=== PATIENT | male | born 1955 | race Asian ===

== ENCOUNTER 2017-06-18 12:24 | Inpatient (IN) | payer OTHER ==
[~2017-06-18] VITALS: Ht 157.5 cm; Wt 70.6 kg
[2017-06-18] MEDS ORDERED: ASPI-650 PO (13:12)
[2017-06-18] MEDS ORDERED: CLOP75TA52 PO (13:12)
[2017-06-18] MEDS ORDERED: METO25TA35 PO ×2 (13:12→13:15)
[2017-06-18] MEDS ORDERED: LOSA25TA5 PO (13:13)
[2017-06-18] MEDS ORDERED: NITR0.4T SL (13:15)
[2017-06-18] MEDS ORDERED: LOSA50TA6 PO (13:15)
[2017-06-18] MEDS ORDERED: SIMV20TA3 PO (13:15)
[2017-06-18] MEDS ORDERED: SODIUM CHLORIDE FLUSH 10ML SYR IVF ONE (13:30)
[2017-06-18] MEDS ORDERED: MAALOX/HYOSCYAMINE/LIDOCAINE 45 ML BTL PO ONE (13:30)
[2017-06-18] MEDS ORDERED: NITROGLYCERIN SINGLE TAB 0.4 MG SL PRN (13:30)
[2017-06-18 13:39] LABS: BASOPHILS # (AUTO) 0.08 x10^3/uL (0-0.1); BASOPHILS % (AUTO) 1 % (0-1); EOSINOPHILS # (AUTO) 0.25 x10^3/uL (0-0.4); EOSINOPHILS % (AUTO) 3 % (1-7); LYMPHOCYTES # (AUTO) 1.45 x10^3/uL (1-3.4); LYMPHOCYTES % (AUTO) 16 % (22-44); MD NO; MEAN CORPUSCULAR HEMOGLOBIN 29.7 pg (27.5-34.5); MEAN CORPUSCULAR HGB CONC 34.5 g/dL (33.2-36.2); MEAN PLATELET VOLUME 9.1 fL (7.4-10.4); MONOCYTES # (AUTO) 0.82 x10^3/uL (0.2-0.8); MONOCYTES % (AUTO) 9 % (2-9); NEUTROPHILS # (AUTO) 6.56 x10^3/uL (1.8-6.8); NEUTROPHILS % (AUTO) 72 % (42-75); PLATELET COUNT 232 x10^3/uL (130-400); RED BLOOD COUNT 5.02 x10^6/uL (4.38-5.82); RED CELL DISTRIBUTION WIDTH 13.7 % (9.4-14.8)
[2017-06-18] MEDS ORDERED: MAALOX/HYOSCYAMINE/LIDOCAINE 45 ML BTL ONE (13:39)
[2017-06-18] MEDS ORDERED: NITROGLYCERIN SINGLE TAB 0.4 MG SL ONE (13:39)
[2017-06-18 13:42] LABS: PROTHROMBIN TIME 10.3 Seconds (9.6-11.5)
[2017-06-18 13:48] LABS: ALANINE AMINOTRANSFERASE 38 U/L (12-78); ALBUMIN 3.8 g/dL (3.4-5.0); ANION GAP 9 mmol/L (5-15); CALCIUM 8.5 mg/dL (8.5-10.1); CHLORIDE 104 mmol/L (98-107); CREATININE 0.96 mg/dL (0.7-1.3)
[2017-06-18 13:53] LABS: ALKALINE PHOSPHATASE 117 U/L (45-117); BILIRUBIN,TOTAL 0.4 mg/dL (0.2-1.0); TOTAL PROTEIN 7.6 g/dL (6.4-8.2); TROPONIN I < 0.015 ng/mL (0.000-0.045)
[2017-06-18] MEDS ORDERED: DOCUSATE 100 MG CAPSULE PO PRN (15:30)
[2017-06-18] MEDS ORDERED: NITROGLYCERIN 0.4 MG BOTTLE (25 TABS) SL PRN (15:30)
[2017-06-18] MEDS ORDERED: ACETAMINOPHEN 325 MG TABLET PO PRN (15:30)
[2017-06-18] MEDS ORDERED: DEXTROSE 4 GM TAB.CHEW PO PRN (15:30)
[2017-06-18] MEDS ORDERED: ONDANSETRON ODT 4 MG PO PRN (15:30)
[2017-06-18] MEDS ORDERED: ENALAPRILAT 1.25 MG/ML, 2ML IVPush PRN (15:30)
[2017-06-18] MEDS ORDERED: DEXTROSE 50%, 50ML SYRINGE IVPush PRN (15:30)
[2017-06-18] MEDS ORDERED: POLYETHYLENE GLYCOL 17 GM PACKET PO PRN (15:30)
[2017-06-18] MEDS ORDERED: BISACODYL 10 MG SUPP PR PRN (15:30)
[2017-06-18] MEDS ORDERED: GLUCAGON 1 MG IM PRN (15:30)
[2017-06-18] MEDS ORDERED: HYDROcodone/APAP 5/325 TABLET PO PRN (15:30)
[2017-06-18] MEDS ORDERED: morphine SULFATE 10 MG/ML, 1ML IVPush PRN (15:30)
[2017-06-18] MEDS ORDERED: LABETALOL 5MG/ML, 20ML IVPush PRN (15:30)
[2017-06-18] MEDS: INSULIN LISPRO 100 UNITS/ML, PEN SQ-INSULIN SCH ×2 (16:01→22:33)
[2017-06-18] MEDS ORDERED: MORPHINE SULFATE 4 MG/ML, 1ML ONE (16:30)
[2017-06-18 17:22] VITALS: BP 121/78
[2017-06-18 19:20] LABS: TROPONIN I 0.036 ng/mL (0.000-0.045)
[2017-06-18 20:06] VITALS: BP 129/77
[2017-06-18] MEDS ORDERED: SIMVASTATIN 20 MG TABLET PO SCH (21:00)
[2017-06-18] MEDS: METOPROLOL SUCCINATE 50 MG TAB.ER.24H PO SCH (22:18)
[2017-06-18] MEDS: SODIUM CHLORIDE FLUSH 10ML SYR IVF SCH (22:19)
[2017-06-19 01:17] LABS: TROPONIN I 0.047 ng/mL (0.000-0.045)
[2017-06-19 02:53] VITALS: BP 132/78
[2017-06-19 05:57] LABS: CHOL/HDL RATIO 4.6; LDL/HDL RATIO 3.1 (0.5-3.0)
[2017-06-19] MEDS ORDERED: ASPIRIN 325 MG TABLET PO SCH (06:00)
[2017-06-19 07:42] VITALS: BP 124/81
[2017-06-19] MEDS ORDERED: REGADENOSON 0.4 MG/5 ML SYRINGE ONE (08:43)
[2017-06-19] MEDS ORDERED: CLOPIDOGREL 75 MG TABLET PO SCH (09:00)
[2017-06-19] MEDS: SODIUM CHLORIDE FLUSH 10ML SYR IVF SCH ×2 (09:04→20:40)
[2017-06-19] MEDS: LOSARTAN 50MG TABLET PO SCH (09:04)
[2017-06-19] MEDS: INSULIN LISPRO 100 UNITS/ML, PEN SQ-INSULIN SCH ×4 (09:20→20:42)
[2017-06-19 14:06] VITALS: BP 123/74
[2017-06-19 14:34] LABS: HEMOGLOBIN A1C 7.5 % (4.2-6.3)
[2017-06-19] MEDS ORDERED: BIVALIRUDIN 250 MG ONE (14:35)
[2017-06-19] MEDS ORDERED: HEPARIN 1,000 UNITS/ML, 10ML ONE (14:35)
[2017-06-19] MEDS ORDERED: MIDAZOLAM 1 MG/ML, 5ML ONE (14:35)
[2017-06-19] MEDS ORDERED: VERAPAMIL 2.5 MG/ML, 2ML ONE (14:35)
[2017-06-19] MEDS ORDERED: TICAGRELOR 90 MG TABLET ONE (14:35)
[2017-06-19] MEDS ORDERED: FENTANYL PF 100 MCG/2ML ONE (14:35)
[2017-06-19] MEDS: SODIUM CHLORIDE 0.9% 1,000 ML IV SCH ×2 (15:52→20:43)
[2017-06-19 19:18] VITALS: BP 145/82
[2017-06-19] MEDS: METOPROLOL SUCCINATE 50 MG TAB.ER.24H PO SCH (20:40)
[2017-06-19] MEDS ORDERED: ATORVASTATIN 80 MG TABLET PO SCH (21:00)
[2017-06-19] MEDS ORDERED: DIPHENHYDRAMINE 50 MG CAPSULE PO PRN (21:00)
[2017-06-20 01:34] VITALS: BP 139/78
[2017-06-20 05:59] LABS: ALBUMIN 3.5 g/dL (3.4-5.0); ANION GAP 5 mmol/L (5-15); CALCIUM 8.2 mg/dL (8.5-10.1); CHLORIDE 109 mmol/L (98-107)
[2017-06-20 06:55] VITALS: BP 154/75
[2017-06-20] MEDS: INSULIN LISPRO 100 UNITS/ML, PEN SQ-INSULIN SCH ×2 (07:00→12:07)
[2017-06-20] MEDS: SODIUM CHLORIDE 0.9% 1,000 ML IV SCH (07:52)
[2017-06-20] MEDS ORDERED: ASPIRIN 81 MG TABLET EC PO SCH (09:00)
[2017-06-20] MEDS ORDERED: CLOPIDOGREL 75 MG TABLET PO SCH (09:00)
[2017-06-20] MEDS: SODIUM CHLORIDE FLUSH 10ML SYR IVF SCH (09:39)
[2017-06-20] MEDS: LOSARTAN 50MG TABLET PO SCH (09:40)
[2017-06-20] MEDS ORDERED: ATOR-2 PO (10:09)
[2017-06-20] MEDS ORDERED: METF500T4 PO (10:09)
== END 2017-06-20 12:29 | disposition home or self-care (01) | DRG 247 ==
LOC: ED 14:52 → EDIP 15:31 → 5SO 17:21 → DCLOUNGE 06-20 12:21
PROVIDERS: ADMIT Hospitalist; ATTEND Hospitalist
PROC: 4A023N7 Measurement of Cardiac Sampling and Pressure, Left Heart, Percutaneous Approach (ICD-10-PCS; principal; 2017-06-19)
PROC: 027135Z Dilation of Coronary Artery, Two Arteries with Two Drug-eluting Intraluminal Devices, Percutaneous Approach (ICD-10-PCS; 2017-06-19)
PROC: 02703ZZ Dilation of Coronary Artery, One Artery, Percutaneous Approach (ICD-10-PCS; 2017-06-19)
PROC: B2151ZZ Fluoroscopy of Left Heart using Low Osmolar Contrast (ICD-10-PCS; 2017-06-19)
PROC: B2111ZZ Fluoroscopy of Multiple Coronary Arteries using Low Osmolar Contrast (ICD-10-PCS; 2017-06-19)
DX: T82.855A Stenosis of coronary artery stent, initial encounter (principal); I24.9 Acute ischemic heart disease, unspecified; E11.65 Type 2 diabetes mellitus with hyperglycemia; I25.110 Atherosclerotic heart disease of native coronary artery with unstable angina pectoris; E78.5 Hyperlipidemia, unspecified; I10 Essential (primary) hypertension; I25.2 Old myocardial infarction; Y83.1 Surgical operation with implant of artificial internal device as the cause of abnormal reaction of the patient, or of later complication, without mention of misadventure at the time of the procedure; R00.0 Tachycardia, unspecified; Y92.89 Other specified places as the place of occurrence of the external cause; Z87.891 Personal history of nicotine dependence; Z86.12 Personal history of poliomyelitis
CPT/HCPCS: 36415; 71045; 78452; 80048; 80053; 80061; 82040; 82962; 83036; 83690; 84484; 85014; 85018; 85025; 85610; 93005; 93017; 93306; 93458; 99156; 99157; 99285; C1769; C1894; C9600; C9601; J0583; J1644; J2250; J2785; J3010; A9502; C1725; C1874; C1887; C9898; J1815; Q9967